=== PATIENT | male | born 1965 | race African-American/Black ===

== ENCOUNTER 2024-10-02 11:43 | Emergency (ER) | payer BC ==
[2024-10-02] MEDS ORDERED: Lidocaine 1% (PF) 30 ML VIAL ONE (11:55)
[2024-10-02] MEDS ORDERED: Lidocaine 1% w/Epinephrine 1:100K 20 ML VIAL ONE (13:01)
[2024-10-02] MEDS ORDERED: Bacitracin 1 PK ONE (14:26)
== END 2024-10-02 14:54 | disposition home or self-care (01) ==
LOC: ERS 11:43
DX: S51.811A Laceration without foreign body of right forearm, initial encounter (principal); E11.9 Type 2 diabetes mellitus without complications; I10 Essential (primary) hypertension; W29.3XXA Contact with powered garden and outdoor hand tools and machinery, initial encounter
CPT/HCPCS: 12004; 99283